=== PATIENT | female | born 1965 | race Caucasian/White ===

== ENCOUNTER → 2017-01-06 | Outpatient (CLI) | payer BC ==
[~2017-01-06] MED LIST: ADDERALL XR20 MG PO; BACTRIM DS 8001 TAB PO; FLOMAX 0.40.4 MG/CAP PO; MACROBID 1100 MG/CAP PO; NEXIUM 20MG20 MG PO; NEXIUM40 MG PO; NORCO 325 MG-51 TAB PO; PHENERGAN 25 TA25 MG PO; PREDNISONE20 MG PO; PREVACID 30MG30 M1 PO; PYRIDIUM200 M1 PO; [UNRECOGNIZED DRUG - REMARK]
== END ==
LOC: COL.RAD 13:17
DX: N13.1 Hydronephrosis with ureteral stricture, not elsewhere classified (principal)
CPT/HCPCS: Q9967

== ENCOUNTER 2017-01-07 08:45 | Day surgery (SDC) | payer BC ==
[~2017-01-07] VITALS: Ht 162.6 cm; Wt 78.6 kg
[~2017-01-07 08:45] MED LIST changes: -FLOMAX 0.40.4 MG/CAP PO; -NEXIUM 20MG20 MG PO
[2017-01-07 09:38] LABS: BASO # 0.1 (0.0-0.2); BASO % 0.5 % (0.0-2.0); EOS # 0.2 (0.0-0.7); GRAN # 7.1 (1.4-6.5); GRAN % 64.2 % (42.2-75.2); HEMATOCRIT 40.1 % (37.0-47.0); HEMOGLOBIN 13.9 g/dl (12.5-16.0); LYMPH # 2.3 (1.2-3.4); LYMPH % 21.4 % (20.0-51.0); MEAN CELL VOLUME 94 fl (80.0-100.0); MEAN CORPUSCULAR HEMOGLOBIN 33 pg (27.0-31.0); MEAN CORPUSCULAR HGB CONC 35 g/dl (33.0-37.0); MEAN PLATELET VOLUME 10.7 fl (7.4-10.4); MONO # 1.3 (0.1-0.6); MONO % 11.4 % (1.7-9.3); PLATELET COUNT 219 K/mm3 (130-400); RED BLOOD COUNT 4.28 M/mm3 (4.10-5.30); REDCELL DISTRIBUTION WIDTH-CV 13.2 % (11.5-14.5)
[2017-01-07] MEDS ORDERED: NORCO 325 MG-51 TAB PO (09:44)
[2017-01-07] MEDS ORDERED: NEXIUM 20MG20 MG PO (09:45)
[2017-01-07 09:46] LABS: CALCIUM 9.4 mg/dL (8.4-10.2); CREATININE, serum 1.04 mg/dL (0.52-1.25); POTASSIUM 3.4 mmol/L (3.4-5.0)
[2017-01-07] MEDS ORDERED: FLOMAX 0.40.4 MG/CAP PO (09:46)
[2017-01-07 09:47] VITALS: BP 108/73; PULSE 91; TEMP 97.6
[2017-01-07 13:00] VITALS: BP 106/77; PULSE 99
[2017-01-07 13:06] VITALS: TEMP 97
[2017-01-07 13:15] VITALS: BP 95/77; PULSE 82
[2017-01-07 13:30] VITALS: BP 101/71; PULSE 78
== END 2017-01-07 11:12 | disposition home or self-care (01) ==
LOC: SDCO 08:45
PROVIDERS: Urology
DX: N13.30 Unspecified hydronephrosis (principal); N39.0 Urinary tract infection, site not specified; K21.9 Gastro-esophageal reflux disease without esophagitis; N20.1 Calculus of ureter; M54.9 Dorsalgia, unspecified; R31.0 Gross hematuria; Z90.49 Acquired absence of other specified parts of digestive tract; Z90.710 Acquired absence of both cervix and uterus; Z84.1 Family history of disorders of kidney and ureter; Z87.442 Personal history of urinary calculi
CPT/HCPCS: C1769; C2617; J0690; J1100; J1885; J2405; J2704; J2765; J3010; J7120; Q9967

== ENCOUNTER 2017-01-13 10:12 | Emergency (ER) | payer BC ==
[~2017-01-13] VITALS: Ht 162.6 cm; Wt 76.4 kg
[~2017-01-13 10:12] MED LIST changes: +FLOMAX 0.40.4 MG/CAP PO; +NEXIUM 20MG20 MG PO
[2017-01-13 10:13] VITALS: BP 117/82; TEMP 97.7
[2017-01-13] MEDS ORDERED: PREDNISONE20 MG PO (12:17)
[2017-01-13 12:24] VITALS: PULSE 98
== END 2017-01-13 12:24 | disposition home or self-care (01) ==
LOC: COL.ER 10:12
DX: L50.9 Urticaria, unspecified (principal); T37.0X5A Adverse effect of sulfonamides, initial encounter; F90.9 Attention-deficit hyperactivity disorder, unspecified type; K21.9 Gastro-esophageal reflux disease without esophagitis
CPT/HCPCS: J7512

== ENCOUNTER → 2017-09-08 | Outpatient (REF) | LOC: ZLAB.WCH 17:50 | DX: Z01.89 Encounter for other specified special examinations (principal) ==

== ENCOUNTER → 2019-12-28 | Outpatient (CLI) | payer BC | LOC: MC.RAD 09:54 | DX: Z12.31 Encounter for screening mammogram for malignant neoplasm of breast (principal) ==

== ENCOUNTER 2021-06-21 13:13 | Day surgery (SDC) | payer BC ==
[~2021-06-21] VITALS: Ht 162.6 cm; Wt 80.7 kg
[2021-06-21] MEDS ORDERED: XYZAL5 MG PO (13:41)
[2021-06-21] MEDS ORDERED: TESTOPEL PELLET75 MG SQ (13:45)
[2021-06-21 13:58] VITALS: BP 119/99; PULSE 103; TEMP 98
[2021-06-21 15:15] VITALS: BP 115/93; PULSE 89; TEMP 97.7
--- NOTE | 2021-06-21 15:15 | NUR ---
Patient drowsy but arousable to voice. at bedside. Report recieved from VENUS Shelley. Vital signs stable. Patient requesting cranberry juice and blueberry muffin.
[2021-06-21 15:30] VITALS: BP 119/99; PULSE 77
--- NOTE | 2021-06-21 15:30 | NUR ---
Patient alert and awake. Ate blueberry muffin and cranberry juice. MD in to see patient. Patient denies nausea or pain.
[2021-06-21 15:45] VITALS: BP 115/93; PULSE 87
== END 2021-06-21 16:02 | disposition home or self-care (01) ==
LOC: SDCO 13:13
DX: Z12.11 Encounter for screening for malignant neoplasm of colon (principal); D12.3 Benign neoplasm of transverse colon; D12.2 Benign neoplasm of ascending colon; K63.89 Other specified diseases of intestine; K57.30 Diverticulosis of large intestine without perforation or abscess without bleeding; K21.9 Gastro-esophageal reflux disease without esophagitis; K56.699 Other intestinal obstruction unspecified as to partial versus complete obstruction; Z86.010 Personal history of colon polyps; Z79.899 Other long term (current) drug therapy; Z90.710 Acquired absence of both cervix and uterus; Z83.71 Family history of colonic polyps
CPT/HCPCS: C1769; J2704; J7030

== ENCOUNTER 2022-08-25 11:42 | Observation (INO) | payer BC ==
[2022-08-25] VITALS (11 sets, daily range): BP systolic 74–112; BP diastolic 47–67; PULSE 99–121; TEMP 98.5–103.1
[~2022-08-25] VITALS: Ht 162.6 cm; Wt 81.0 kg
[~2022-08-25 11:42] MED LIST changes: +TESTOPEL PELLET75 MG SQ; +XYZAL5 MG PO
--- NOTE | 2022-08-25 12:10 | NUR ---
Critical H&H called to Dr. Reyna. Hospitlaist consult obtained.
[2022-08-25] MEDS ORDERED: PROMETRIUM100 MG PO (12:27)
[2022-08-25 12:31] LABS: HEMOGLOBIN 14.9 g/dl (12.5-16.0); MEAN CELL VOLUME 95 fl (80.0-100.0); MEAN CORPUSCULAR HEMOGLOBIN 33 pg (27-31); MEAN CORPUSCULAR HGB CONC 35 g/dl (33.0-37.0); MEAN PLATELET VOLUME 11.1 fl (7.4-10.4); PLATELET COUNT 219 K/mm3 (130-400); RED BLOOD COUNT 4.53 M/mm3 (4.10-5.30); REDCELL DISTRIBUTION WIDTH-CV 13.2 % (11.5-14.5)
[2022-08-25 12:51] LABS: ALBUMIN 3.3 gm/dL (3.5-5.0); CALCIUM 8.8 mg/dL (8.4-10.2); CREATININE, serum 1.53 mg/dL (0.57-1.11)
--- NOTE | 2022-08-25 13:25 | NUR ---
Patient admission paperwork completed. IVF and antibioitcs as ordered. Zosyn & patient antibioitcs allergies discussed and reviewed with pharmacy.
[2022-08-25 13:26] LABS: BAND 9 % (0-10); LYMPHOCYTE 2 % (20.0-51.0); NEUTROPHILS 87 % (42.0-75.2); PLATELET ESTIMATE NORMAL (NORMAL)
--- NOTE | 2022-08-25 15:10 | NUR ---
Hospitalist made aware of elevated temp, treated with tylenol & continuing IVF.
[2022-08-25 16:09] LABS: COLLECTION METHOD CLEAN CATCH
[2022-08-25 16:24] LABS: SQUAMOUS EPITHELIAL 0-2 /hpf (0-10); URINE BACTERIA Occasional /hpf (NONE SEEN); URINE WBC >50 /hpf (0-2)
[2022-08-25 16:25] LABS: PH 6.5 (5.0-8.5); URINE APPEARANCE Hazy (CLEAR/HAZY); URINE COLOR Yellow (YELLOW); URINE GLUCOSE Negative (NEGATIVE); URINE KETONE Negative (NEGATIVE); URINE PROTEIN(semi-quant) 3+ (NEGATIVE); URINE UROBILINOGEN 0.2 E.U/dL (0.2-1.0)
[2022-08-25 16:26] LABS: URINE BLOOD 2+ (NEGATIVE); URINE NITRATE Positive (NEGATIVE)
--- NOTE | 2022-08-25 16:35 | NUR ---
Patient to the OR with Renetta and Laura
[2022-08-25] MEDS ORDERED: NORCO 325 MG-51 TAB PO (17:39)
[2022-08-25] MEDS ORDERED: PYRIDIUM 100MG100 MG PO (17:39)
--- NOTE | 2022-08-25 19:58 | NUR ---
SHIFT REPORT FROM PORTIA AND CLASSIFIED AD TAKER. PATIENT UP VIA BED AT 1919. ALERT AND ORIENTED. POST OP VITALS INITIATED. AT BEDSIDE. C/O MINIMAL PAIN BUT DENIES NEEDS. IVF TO R HAND IV. ZOSYN STARTED. CHRISTINA TO DD WITH CLOUDY YELLOW OUTPUT. TOLERATING PO FLUIDS. LEFT TO GET FOOD FOR HER. DENIES ADDITIONAL NEEDS. CALL LIGHT IN REACH.
[2022-08-26] VITALS (7 sets, daily range): BP systolic 88–107; BP diastolic 47–66; PULSE 90–97; TEMP 98.1–100.7
--- NOTE | 2022-08-26 05:45 | NUR ---
AT 0400 PATIENTS BP WAS 80s/40s, NOTIFIED JERICHO ROSADO AND ORDER FOR NS BOLUS. BOLUS COMPLETE AND BP WAS 95/66.
[2022-08-26 06:37] LABS: MEAN CELL VOLUME 98 fl (80.0-100.0); MEAN CORPUSCULAR HGB CONC 33 g/dl (33.0-37.0); MEAN PLATELET VOLUME 11.8 fl (7.4-10.4); PLATELET COUNT 157 K/mm3 (130-400); RED BLOOD COUNT 3.39 M/mm3 (4.10-5.30); REDCELL DISTRIBUTION WIDTH-CV 13.9 % (11.5-14.5)
[2022-08-26 06:49] LABS: CALCIUM 7.5 mg/dL (8.4-10.2); CREATININE, serum 1.6 mg/dL (0.57-1.11); POTASSIUM 3.9 mmol/L (3.5-4.5)
[2022-08-26 06:58] LABS: HEMATOCRIT 33.1 % (37.0-47.0); MEAN CORPUSCULAR HEMOGLOBIN 32 pg (27-31)
[2022-08-26 07:31] LABS: BAND 41 % (0-10); BASOPHIL 1 % (0-2); EOSINOPHIL 1 % (0-4); LYMPHOCYTE 6 % (20.0-51.0); METAMYELOCYTE 2 % (0-0); NEUTROPHILS 47 % (42.0-75.2)
[2022-08-26 07:32] LABS: PLATELET ESTIMATE NORMAL (NORMAL)
[2022-08-26 07:33] LABS: BURR CELLS 1+
--- NOTE | 2022-08-26 07:53 | NUR ---
UPON ASSESSMENT PT IS ALERT AND ORIENTED X4. BOWEL SOUNDS ACTIVE IN ALL FOUR QUADRANTS. PT STATED PAIN WHEN TAKING A DEEP BREATH OTHERWISE STATED PAIN WAS A 4/10 AT THIS TIME. LUNG SOUNDS CLEAR BILATERIAL UPPER LOBES AND DIMINISED BILATERIALLY IN LOWER LOBES. PT STATED IRRITATION WITH HER FULLY CATH AND WOULD LIKE TO TALK TO PHYSICAN ABOUT GETTING IT DISCONTINUED DUE TO FEELING LIKE SHE WOULD BE MORE COMFORTABLE WITHOUT IT IN.
--- NOTE | 2022-08-26 10:55 | NUR ---
Initial visit: Pt was sitting in bed eating breakfast. Pt has no needs right now. Pt appreciated the visit. Grand Scribe will follow up as needed.
--- NOTE | 2022-08-26 11:17 | NUR ---
AGREE WITH STUDENT'S ASSESSMENTS.
--- NOTE | 2022-08-26 11:36 | NUR ---
DR. MISTRY ROUNDED AND GAVE VERBAL TO REMOVE CHRISTINA CATHETER.
--- NOTE | 2022-08-26 14:40 | NUR ---
SW met with patient to complete intake. Patients Amalia ([phone]) present at bedside. Patient lives at home with Amalia in [place]. She is fully independent with his ADL's and IADL's. She does not utilize any DME to assist with mobility at home and has no home oxygen needs, however is on 1L at rest now. PCP is and she utilizes [facility] for prescriptions. Patient does not have a DPOA-HC established and does not wish to create one at this time. Patient is planning on returning home once medically ready. Discharge plan:Home
--- NOTE | 2022-08-26 19:22 | NUR ---
SHIFT REPORT FROM LEVY DONOVAN. PATIENT IN BED ON ROOM ENTRY. ALERT AND ORIENTED. C/O MODERATE INTERMITTENT FLANK PAIN AND DIFFICULTY GETTING DEEP BREATHS BECAUSE OF IT, PRN NORCO WAS GIVEN. IVF INFUSING TO R HAND IV ALONG WITH IV ZOSYN STARTED. STATES SHE IS URINATING WITHOUT DIFFICULTY. DENIES ADDITIONAL NEEDS AT THIS TIME.
--- NOTE | 2022-08-26 23:39 | NUR ---
PATIENTS TEMP 100.7. PRN TYLENOL GIVEN.
[2022-08-27 03:41] VITALS: BP 109/70; PULSE 82; TEMP 99
[2022-08-27 07:29] VITALS: BP 102/61; PULSE 79; TEMP 99
--- NOTE | 2022-08-27 08:27 | NUR ---
UPON ENTERING THE ROOM THE PT NASAL CANULA WAS NOT ON. PT STATED SHE ACCIDENTLY PULLED IT OFF. O2 STAT WAS 86%. O2 WAS PLACED BACK ON AND REASSESSED. O2 STAT WAS BACK UP TO 92%.
[2022-08-27 09:26] LABS: HEMOGLOBIN 12.1 g/dl (12.5-16.0); MEAN CELL VOLUME 95 fl (80.0-100.0); MEAN CORPUSCULAR HEMOGLOBIN 33 pg (27-31); MEAN CORPUSCULAR HGB CONC 35 g/dl (33.0-37.0); MEAN PLATELET VOLUME 11.5 fl (7.4-10.4); PLATELET COUNT 150 K/mm3 (130-400); RED BLOOD COUNT 3.63 M/mm3 (4.10-5.30); REDCELL DISTRIBUTION WIDTH-CV 13.9 % (11.5-14.5)
[2022-08-27 09:28] LABS: HEMATOCRIT 34.3 % (37.0-47.0)
[2022-08-27 09:46] LABS: CREATININE, serum 1.54 mg/dL (0.57-1.11); MAGNESIUM 1.7 mg/dL (1.6-2.6); POTASSIUM 3.9 mmol/L (3.5-4.5)
[2022-08-27 10:01] LABS: BAND 19 % (0-10); LYMPHOCYTE 10 % (20.0-51.0); METAMYELOCYTE 1 % (0-0); NEUTROPHILS 68 % (42.0-75.2); PLATELET ESTIMATE NORMAL (NORMAL)
[2022-08-27 10:02] LABS: BURR CELLS 1+
[2022-08-27 11:13] VITALS: BP 111/73; PULSE 86; TEMP 98.9
[2022-08-27] MEDS ORDERED: AMOXICILLIN 8751 TAB PO (15:39)
[2022-08-27] MEDS ORDERED: NORCO 325 MG-51 TAB PO ×2 (15:40)
[2022-08-27 15:42] VITALS: BP 107/70; PULSE 93; TEMP 100.4
--- NOTE | 2022-08-27 16:48 | NUR ---
DISCHARGE INSTSRUCTIONS REVIEWED WITH PT AND . QUESTIONS ANSWERED. PT LEFT FLOOR PER WHEEL CHAIR WITH STAFF.
== END 2022-08-27 16:30 | disposition home or self-care (01) ==
LOC: SURG 11:42
PROVIDERS: Internal Medicine; Physician Assistant; ADMIT Urology
DX: N20.1 Calculus of ureter (principal); A41.9 Sepsis, unspecified organism; N13.9 Obstructive and reflux uropathy, unspecified; N39.0 Urinary tract infection, site not specified; B96.20 Unspecified Escherichia coli [E. coli] as the cause of diseases classified elsewhere; D72.829 Elevated white blood cell count, unspecified; R00.0 Tachycardia, unspecified; R09.02 Hypoxemia; K21.9 Gastro-esophageal reflux disease without esophagitis; N17.9 Acute kidney failure, unspecified; J98.8 Other specified respiratory disorders; J18.9 Pneumonia, unspecified organism; F90.9 Attention-deficit hyperactivity disorder, unspecified type; Z79.899 Other long term (current) drug therapy; Z20.822 Contact with and (suspected) exposure to COVID-19
CPT/HCPCS: C1769; C2617; G0378; G0379; J2270; J2405; J2543; J2704; J3010; J7030; J7120; Q9967

== ENCOUNTER 2022-09-09 11:03 | Day surgery (SDC) | payer BC ==
[~2022-09-09] VITALS: Ht 162.6 cm; Wt 76.9 kg
[~2022-09-09 11:03] MED LIST changes: +AMOXICILLIN 8751 TAB PO; +PROMETRIUM100 MG PO; +PYRIDIUM 100MG100 MG PO
[2022-09-09] MEDS ORDERED: PROAIR HFA0.09 MG/AC IH (12:11)
[2022-09-09] MEDS ORDERED: FLOMAX 0.40.4 MG/CAP PO (12:12)
[2022-09-09] MEDS ORDERED: DIFLUCAN200 MG PO (12:14)
[2022-09-09] MEDS ORDERED: TESTOPEL PELLET75 MG IL (12:17)
[2022-09-09] MEDS ORDERED: VITAMIN D PO (12:19)
[2022-09-09] MEDS ORDERED: ORTHOMEGA (12:19)
[2022-09-09] MEDS ORDERED: [UNRECOGNIZED DRUG - OTHER] PO (12:19)
[2022-09-09] MEDS ORDERED: MAGNESIUM200 MG PO (12:20)
[2022-09-09 12:23] VITALS: BP 98/74; PULSE 111; TEMP 98.5
[2022-09-09] MEDS ORDERED: PYRIDIUM 100MG100 MG PO (13:59)
[2022-09-09 14:30] VITALS: BP 105/86; PULSE 98; TEMP 96.9
--- NOTE | 2022-09-09 14:30 | NUR ---
1430 PATIENT RETURNS TO ROOM 8 VIA CART. PATIENT IS ALERT AND ORIENTED. RESPIRATIONS EVEN AND UNLABORED. VITAL SIGNS OBTAINED. PATIENT STATES THAT SHE HAS URGENCY TO URINATE. THIS NURSE ASSISTED PATIENT TO THE RESTROOM. PATIENT HAS STEADY GAIT. PATIENT URIANTED AND PASSED STONES. PATIENT IS NOT C/O ANY PAIN. 1500 PATIENT REQUESTED WATER. NO DIFFICULTIES SWALLOWING. 1510 DISCHARGE INSTRUCTIONS REVIEWED WITH PATIENT. PATIENT VERBALIZED UNDERSTANDING. 1515 DISCONTINUED IV FROM LEFT FOREARM WITH NO DIFFICULTIES. 1540 PATIENT DISCHARGES FROM UNIT VIA WHEELCHAIR IN STABLE CONDITION.
[2022-09-09 14:36] VITALS: TEMP 96.9
[2022-09-09 14:45] VITALS: BP 121/86; PULSE 92
[2022-09-09 15:00] VITALS: BP 113/83; PULSE 87
[2022-09-09 15:15] VITALS: BP 122/84; PULSE 92
== END 2022-09-09 15:40 | disposition home or self-care (01) ==
LOC: SDCO 11:03
DX: N20.2 Calculus of kidney with calculus of ureter (principal); N30.00 Acute cystitis without hematuria; K21.9 Gastro-esophageal reflux disease without esophagitis
CPT/HCPCS: C1769; J0690; J1100; J1170; J1885; J1940; J2370; J2405; J2704; J3010; J7120